=== PATIENT | male | born 1980 | race Caucasian/White ===

== ENCOUNTER 2017-01-17 22:22 | Inpatient (IN) | payer OTHER ==
[~2017-01-17] VITALS: Ht 180.3 cm; Wt 92.1 kg
--- NOTE | 2017-01-17 22:32 | ED GI/GU/ABDOMINAL COMPLAINT ---
History of Present Illness General Chief Complaint: Abdominal Pain/Flank Pain Stated Complaint: ABD PAIN/ CHEST TIGHTNESS Source: patient Exam Limitations: no limitations Vital Signs & Intake/Output Vital Signs & Intake/Output Vital Signs Date Time Temp Pulse Resp B/P Pulse O2 O2 Flow FiO2 Ox Delivery Rate 01/18 0002 96.5 97 18 124/79 93 Room Air 01/17 2306 99 Room Air 01/17 2227 98.3 110 28 154/96 97 ED Intake and Output 01/18 0000 01/17 1200 Intake Total 1000 Output Total Balance 1000 Intake, IV 1000 Patient 203 lb Weight Allergies Coded Allergies: NO KNOWN ALLERGIES (01/10/17) Reconcile Medications Butalb/Acetaminophen/Caffeine (Fioricet 50-300-40 MG Capsule) 1 EACH CAPSULE 1 TAB PO Q4-6 PRN PAIN Metoclopramide HCl (Reglan) 10 MG TABLET 1 TAB PO Q8 PRN nausea/headache Multivitamin (Multi-Day Vitamins) 1 EACH TABLET 1 TAB PO DAILY SUPPLEMENT ( Reported) Pantoprazole Sodium 40 MG TABLET.DR 1 TAB PO DAILY GI (Reported) Triage Note: per pt had hernia surgery this am by dr. petra garcia abd pain and pain into chest, used co2 to do surgery, pt reports also not passing any gas. Triage Nurses Notes Reviewed? yes Onset: Gradual Duration: hour(s): Timing: recent history Quality/Severity: burning, cramping Location: generalized abdomen Radiation: no radiation Activities at Onset: postop Prior Abdominal Problems: patient had hernia and Diane fundoplication surgery earlier today. Modifying Factors: Worsens With: vomiting. Associated Symptoms: abdominal pain, nausea/vomiting HPI: 36-year-old gentleman status post Diane fundoplication and abdominal wall hernia repair, was discharged at approximately 5 PM this afternoon, presents with midepigastric abdominal pain vomiting, decreased oral intake, abdominal distention. He states, "I can't keep anything down." He notes no fever chills shortness of breath wheezing phlegm. He is otherwise well. Past History Travel History Traveled to [place] past 21 day No Medical History Any Pertinent Medical History? 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 No Review of Systems Review of Systems Constitutional: Reports: no symptoms. EENTM: Reports: no symptoms. Respiratory: Reports: no symptoms. Cardiovascular: Reports: no symptoms. GI: Reports: no symptoms. Genitourinary: Reports: no symptoms. Musculoskeletal: Reports: no symptoms. Skin: Reports: no symptoms. Neurological/Psychological: Reports: no symptoms. Hematologic/Endocrine: Reports: no symptoms. Immunologic/Allergic: Reports: no symptoms. All Other Systems: Reviewed and Negative Physical Exam Physical Exam General Appearance: well developed/nourished, mild distress, moderate distress Head: atraumatic, normal appearance Eyes: Bilateral: normal appearance. Ears, Nose, Throat, Mouth: hearing grossly normal Neck: normal inspection, supple, full range of motion, normal alignment, abnormal alignment Respiratory: normal breath sounds, chest non-tender, no respiratory distress, quiet respiration, lungs clear Cardiovascular: regular rate/rhythm Gastrointestinal: normal bowel sounds, diminished bowel sounds, moderately distended abdomen, several surgical suture sites are clean/dry/intact. Back: normal inspection, normal range of motion Extremities: normal range of motion, evidence of injury Neurologic/Psych: no motor/sensory deficits, awake, alert, oriented x 3 Skin: intact, normal color, warm/dry Core Measures ACS in differential dx? No Severe Sepsis Present: No Septic Shock Present: No Progress Differential Diagnosis: post-op pain, ileus, sbo vs other. Plan of Care: Orders Procedure Date/time Status Admit to inpatient 01/18 0050 Active CULTURE,URINE 01/17 2342 Active URINALYSIS 01/17 234 Complete LIPASE 01/17 223 Complete HEPATIC FUNCTION PANEL 01/17 2233 Complete CBC WITHOUT DIFFERENTIAL 01/17 2233 Complete BASIC METABOLIC PANEL 01/17 2233 Complete AMYLASE 01/17 2233 Complete EKG 01/17 2233 Active Current Medications Sig/Karin Start time Last Medication Dose Stop Time Status Admin Sodium Chloride 1,000 ML BOLUS ONE 01/18 0100 AC (Normal Saline 0.9%) 01/18 0159 Laboratory Tests 01/17/17 2353: Urine Color STRAW, Urine Clarity CLEAR, Urine pH 6.5, Ur Specific [place] 1.010, Urine Protein NEG, Urine Ketones NEG, Urine Nitrite NEG, Urine Bilirubin NEG, Urine Urobilinogen 0.2, Ur Leukocyte Esterase NEG, Ur Microscopic SEDIMENT EXAMINED, Urine RBC RARE, Ur Epithelial Cells RARE, Urine Hemoglobin TRACE- INTACT H, Urine Glucose 250 H 01/17/17 2304: Anion Gap 13, Estimated GFR > 60, BUN/Creatinine Ratio 13.0, Glucose 186 H, Calcium 9.3, Total Bilirubin 1.0, Direct Bilirubin 0.4, AST 103 H, ALT 133 H, Alkaline Phosphatase 96, Total Protein 6.5, Albumin 4.0, Amylase 33, Lipase 128, CBC w Diff NO MAN DIFF REQ, RBC 4.99, MCV 84.5, MCH 28.2, RDW 15.0 H, MPV 9.4, Gran % 93.6 H, Lymphocytes % 5.5 L, Monocytes % 0.9 L, Eosinophils % 0, Basophils % 0 L, Absolute Granulocytes 10.4 H, Absolute Lymphocytes 0.6 L, Absolute Monocytes 0.1 L, Absolute Eosinophils 0, Absolute Basophils 0, PUBS MCHC 33.4 Microbiology 01/17 2353 URINE ROUT: Urine Culture - RECD Diagnostic Imaging: Viewed by Me: CT Scan. Discussed w/RAD: CT Scan. Radiology Impression: abd/pelvic ct - free air in mediastinum c/w diane fundoplication, food in distal esophagus... full report below. Initial ED EKG: normal axis, normal intervals, normal p-waves, normal QRS complex, normal sinus rhythm Comments: PATIENT: HA NAVARRO PRESENT AGE: 36 PATIENT ACCOUNT NO: [id number] : 81 LOCATION: [facility] ORDERING PHYSICIAN: BUSTER HAIRSTON MD SERVICE DATE: 01/17/17 EXAM TYPE: CAT - CT ABD & PELVIS W/O IV CONTRAS EXAMINATION: CT ABDOMEN AND PELVIS WITHOUT CONTRAST CLINICAL INFORMATION: Abdominal pain status post hernia surgery today. COMPARISON: Abdominal CT October 12, 2014. TECHNIQUE: Multidetector volumetric imaging was performed from the superior aspect of the liver through the pubic symphysis. Sagittal and coronal reformatted images were obtained on the technologist's workstation. FINDINGS: There is streaky bibasilar atelectasis. Limited evaluation of the unenhanced liver, spleen, adrenal glands, and pancreas reveals no definite abnormality. Gallbladder is surgically absent. The kidneys are symmetric in size without evidence of hydronephrosis or nephrolithiasis. Patient is status post gastric Diane fundoplication. There is soft tissue gas within the mediastinum surrounding the heart. The large and small bowel are normal in caliber without evidence of mechanical obstruction. No focal inflammatory changes adjacent to the large or the small bowel. The appendix is not visualized. There is no free air and there is no intra-abdominal free fluid. No mesenteric or retroperitoneal adenopathy. Small amount of nondependent gas within the bladder is presumably related to recent Lerma catheter insertion. No pelvic adenopathy. No free fluid within the pelvis. There are no acute osseous abnormalities. There is a chronic superimposed plate Schmorl's node at T12. There is a small fat-containing ventral abdominal wall hernia. IMPRESSION: - Patient is status post gastric Diane fundoplication. There is soft tissue gas within the mediastinum surrounding the heart. There are no inflammatory changes within the mediastinum. The distal esophagus is slightly distended with ingested material and there is gaseous distention of the stomach. There is no intra-abdominal free air and there are no acute findings within the abdomen or pelvis. - There is streaky bibasilar atelectasis. - Cholecystectomy. - Small fat-containing ventral abdominal wall hernia. DICTATED BY: JOSIAH TAN MD DATE/TIME DICTATED:01/17/172317 SUPERVISOR CURING ROOM:[facility] DATE/TIME TRANSCRIBED:01/17/172317 CONFIDENTIAL, DO NOT COPY WITHOUT APPROPRIATE AUTHORIZATION. <Electronically signed in Other Vendor System> SIGNED BY: JOSIAH TAN MD 01/17/17 2189 Departure Departure Disposition: STILL A PATIENT Condition: Stable Clinical Impression Primary Impression: Postoperative pain Referrals: IFTIKHAR AUGUSTIN (PCP/Family) Departure Forms: Customer Survey General Discharge Information Admission Note Spoke With: PETRA TAVARES,DONAL Bowles Documentation of Exam: Documentation of any treatments & extenuating circumstances including Concerns Regarding Discharge (functional status, medication knowledge or non-compliance, living conditions, etc.) that warrant an admission rather than observation: pt with post-op pain, poor po intake. pt merits iv fluids, iv pain meds, recuperation.
[2017-01-17 23:18] LABS: ABSOLUTE BASOPHIL COUNT 0 /CUMM (0.0-0.2); ABSOLUTE EOSINOPHIL COUNT 0 /CUMM (0.0-0.7); ABSOLUTE GRANULOCYTE CT 10.4 /CUMM (1.4-6.5); ABSOLUTE LYMPH COUNT 0.6 /CUMM (1.2-3.4); ABSOLUTE MONOCYTE COUNT 0.1 /CUMM (0.10-0.60); BASOPHIL % 0 % (0.0-2.0); EOSINOPHIL % 0 % (0-5); HEMATOCRIT 42.2 % (42-52); MEAN CORPUSCULAR HGB 28.2 PG (27.0-31.0); MEAN CORPUSCULAR HGB CONC 33.4 G/DL (33.0-37.0); MEAN CORPUSCULAR VOLUME 84.5 FL (80.0-94.0); MEAN PLATELET VOLUME 9.4 FL (7.4-10.4); PLATELET COUNT 165 /CUMM (130-400); RED BLOOD CELL CT 4.99 /CUMM (4.70-6.10); WHITE BLOOD CELL COUNT 11.1 /CUMM (4.8-10.8)
[2017-01-17 23:21] LABS: GRANULOCYTE % 93.6 % (42.2-75.2)
--- NOTE | 2017-01-17 23:35 | CT SCAN REPORT ---
EXAMINATION: CT ABDOMEN AND PELVIS WITHOUT CONTRAST CLINICAL INFORMATION: Abdominal pain status post hernia surgery today. COMPARISON: Abdominal CT October 12, 2014. TECHNIQUE: Multidetector volumetric imaging was performed from the superior aspect of the liver through the pubic symphysis. Sagittal and coronal reformatted images were obtained on the technologist's workstation. FINDINGS: There is streaky bibasilar atelectasis. Limited evaluation of the unenhanced liver, spleen, adrenal glands, and pancreas reveals no definite abnormality. Gallbladder is surgically absent. The kidneys are symmetric in size without evidence of hydronephrosis or nephrolithiasis. Patient is status post gastric Diane fundoplication. There is soft tissue gas within the mediastinum surrounding the heart. The large and small bowel are normal in caliber without evidence of mechanical obstruction. No focal inflammatory changes adjacent to the large or the small bowel. The appendix is not visualized. There is no free air and there is no intra-abdominal free fluid. No mesenteric or retroperitoneal adenopathy. Small amount of nondependent gas within the bladder is presumably related to recent Lerma catheter insertion. No pelvic adenopathy. No free fluid within the pelvis. There are no acute osseous abnormalities. There is a chronic superimposed plate Schmorl's node at T12. There is a small fat-containing ventral abdominal wall hernia. IMPRESSION: - Patient is status post gastric Diane fundoplication. There is soft tissue gas within the mediastinum surrounding the heart. There are no inflammatory changes within the mediastinum. The distal esophagus is slightly distended with ingested material and there is gaseous distention of the stomach. There is no intra-abdominal free air and there are no acute findings within the abdomen or pelvis. - There is streaky bibasilar atelectasis. - Cholecystectomy. - Small fat-containing ventral abdominal wall hernia.
--- NOTE | 2017-01-18 01:27 | Admission Core Measures ---
Admission Lab Results I reviewed the following labs: Laboratory Tests 01/17 01/17 2353 2304 Chemistry Sodium (137 - 145 mmol/L) 138 Potassium (3.5 - 5.1 mmol/L) 4.1 Chloride (98 - 107 mmol/L) 102 Carbon Dioxide (22 - 30 mmol/L) 22 Anion Gap (5 - 16) 13 BUN (9 - 20 mg/dL) 13 Creatinine (0.7 - 1.2 mg/dL) 1.0 Estimated GFR (>60 ml/min) > 60 BUN/Creatinine Ratio (7 - 25 %) 13.0 Glucose (65 - 99 mg/dL) 186 H Calcium (8.4 - 10.2 mg/dL) 9.3 Total Bilirubin (0.2 - 1.3 mg/dL) 1.0 Direct Bilirubin (< 0.4 mg/dL) 0.4 AST (17 - 59 U/L) 103 H ALT (21 - 72 U/L) 133 H Alkaline Phosphatase (< 127 U/L) 96 Total Protein (6.3 - 8.2 g/dL) 6.5 Albumin (3.5 - 5.0 g/dL) 4.0 Amylase (30 - 110 U/L) 33 Lipase (23 - 300 U/L) 128 Hematology CBC w Diff NO MAN DIFF REQ WBC (4.8 - 10.8 /CUMM) 11.1 H RBC (4.70 - 6.10 /CUMM) 4.99 Hgb (14.0 - 18.0 G/DL) 14.1 Hct (42 - 52 %) 42.2 MCV (80.0 - 94.0 FL) 84.5 MCH (27.0 - 31.0 PG) 28.2 RDW (11.5 - 14.5 %) 15.0 H Plt Count (130 - 400 /CUMM) 165 MPV (7.4 - 10.4 FL) 9.4 Gran % (42.2 - 75.2 %) 93.6 H Lymphocytes % (20.5 - 51.1 %) 5.5 L Monocytes % (1.7 - 9.3 %) 0.9 L Eosinophils % (0 - 5 %) 0 Basophils % (0.0 - 2.0 %) 0 L Absolute Granulocytes (1.4 - 6.5 /CUMM) 10.4 H Absolute Lymphocytes (1.2 - 3.4 /CUMM) 0.6 L Absolute Monocytes (0.10 - 0.60 /CUMM) 0.1 L Absolute Eosinophils (0.0 - 0.7 /CUMM) 0 Absolute Basophils (0.0 - 0.2 /CUMM) 0 PUBS MCHC (33.0 - 37.0 G/DL) 33.4 Urines Urine Color (YEL,AMB,STR) STRAW Urine Clarity (CLEAR) CLEAR Urine pH (5.0 - 8.0) 6.5 Ur Specific [place] (1.001 - 1.035) 1.010 Urine Protein (NEG,<30 MG/DL) NEG Urine Ketones (NEG) NEG Urine Nitrite (NEG) NEG Urine Bilirubin (NEG) NEG Urine Urobilinogen (0.1 - 1.0 EU/dl) 0.2 Ur Leukocyte Esterase (NEG) NEG Ur Microscopic SEDIMENT EXAMINED Urine RBC (0 - 5 /HPF) RARE Ur Epithelial Cells (NONE,FEW) RARE Urine Hemoglobin (NEG) TRACE-INTACT H Urine Glucose (N MG/DL) 250 H Admission Meds I reviewed the following Meds: Current Medications Sig/Karin Start time Last Medication Dose Stop Time Status Admin Sodium Chloride 1,000 ML BOLUS ONE 01/18 010 AC (Normal Saline 0.9%) 01/18 0159 Acute Coronary Syndrome Inclusion Criteria ACS Diagnosis No Inpatient Core Measures LDL Reminder: If No, please order W/I first 24hr of stay Congestive Heart Failure Inclusion Criteria CHF Diagnosis No Cerebrovascular accident Inclusion Criteria CVA/TIA Diagnosis No Inpatient Core Measures Bedside Swallow Eval Reminder: If BSE failed, place ST order Antithrombotic Reminder: Order Antithrombotic Medication by end of day 2 Antithrombotic Reminder: Document Reason Antithrombotic Not ordered by end of day 2 AFIB/Flutter Reminder: If Present, add to problem list AFIB/Flutter Reminder: Order Anticoag Medication for pts with AFIB/Flutter Atherosclerosis Reminder: If Present, add to problem list LDL Reminder: If No, please order W/I first 24hr of stay PT Order Reminder: If No, please order Venous thromboembolism Inpatient Core Measures VTE Risk Factors: Surgery VTE Prophylaxis Ordered Inpt Mech & Pharm No Mech VTE prophylaxis d/t No contraindications No VTE Pharm Prophylaxis d/t No contraindications Inclusion Criteria - Per Current guidelines, there needs to be overlap - treatment for the first 5 days of Warfarin therapy. - Parenteral Anticoagulation (IV or SC) needs to be - given along with Warfarin therapy. VTE Diagnosis No VTE Type NONE VTE Confirmed by (Test) NONE Problem List As ranked by this Provider includes Assessment & Plan 1. Postoperative pain 2. Status post laparoscopic Diane fundoplication HOME MEDS Home Med List Butalb/Acetaminophen/Caffeine (Fioricet 50-300-40 MG Capsule) 1 EACH CAPSULE 1 TAB PO Q4-6 PRN PAIN Metoclopramide HCl (Reglan) 10 MG TABLET 1 TAB PO Q8 PRN nausea/headache Multivitamin (Multi-Day Vitamins) 1 EACH TABLET 1 TAB PO DAILY SUPPLEMENT ( Reported) Pantoprazole Sodium 40 MG TABLET.DR 1 TAB PO DAILY GI (Reported)
--- NOTE | 2017-01-18 01:41 | History & Physical ---
General Information and HPI MD Statement: I have seen and personally examined HA SARKAR and documented this H&P. The patient is a 36 year old M who presented with a patient stated chief complaint of [abdominal pain]. Source of Information: patient, old records Exam Limitations: no limitations History of Present Illness: Mr. Sarkar is a 36-year-old male who is status post laparoscopic Diane fundoplication earlier today. He was discharged without complications this afternoon however when he arrived at home he began experiencing increased abdominal pain chest pain and vomiting after eating a partial doughnut. After the initial episode of vomiting he states that he continued to vomit and then began dry heaving. He was concerned so presented himself to the emergency room for evaluation. He denies substernal chest pain, shortness of breath, he is urinating without difficulty, and is passing gas. He denies any fever or chills. He has no other complaints. Allergies/Medications Allergies: Coded Allergies: NO KNOWN ALLERGIES (01/10/17) Home Med list Butalb/Acetaminophen/Caffeine (Fioricet 50-300-40 MG Capsule) 1 EACH CAPSULE 1 TAB PO Q4-6 PRN PAIN Metoclopramide HCl (Reglan) 10 MG TABLET 1 TAB PO Q8 PRN nausea/headache Multivitamin (Multi-Day Vitamins) 1 EACH TABLET 1 TAB PO DAILY SUPPLEMENT ( Reported) Pantoprazole Sodium 40 MG TABLET. 1 TAB PO DAILY GI (Reported) Past History Travel History Traveled to [place] past 21 day No Medical History Neurological: NONE EENT: NONE Cardiovascular: NONE Respiratory: NONE Gastrointestinal: GERD Hepatic: NONE Renal: NONE Musculoskeletal: NONE Psychiatric: NONE Endocrine: NONE Blood Disorders: NONE Cancer(s): NONE [employer]ER/Reproductive: NONE Surgical History Surgical History: NONE Past Family/Social History Psychosocial History Services at Home: None Review of Systems Review of Systems Constitutional: Denies: no symptoms, see HPI, chills, diaphoresis, fever, malaise, weakness, unexplained weight loss. Exam & Diagnostic Data Last 24 Hrs of Vital Signs/I&O Vital Signs Date Time Temp Pulse Resp B/P Pulse O2 O2 Flow FiO2 Ox Delivery Rate 01/18 0002 96.5 97 18 124/79 93 Room Air 01/17 2306 99 Room Air 01/17 2227 98.3 110 28 154/96 97 Intake & Output 01/18 0800 01/18 0000 03/01 1600 Intake Total 1000 Output Total Balance 1000 Intake, IV 1000 Patient 203 lb Weight Physical Exam General Appearance Alert, Oriented X3 HEENT PERRLA Cardiovascular Regular Rate, Normal S1, Normal S2 Lungs Clear to Auscultation Abdomen abdomen is softly distended, tenderness to palpation in the left upper quadrant, expected after Diane fundoplication, there is no evidence of peritonitis, bowel sounds are hypoactive Neurological Normal Speech, Strength at 5/5 X4 Ext Extremities No Edema Vascular Normal Pulses Last 24 Hrs of Labs/Eduardo: Laboratory Tests 01/17/172352: Urine Color STRAW, Urine Clarity CLEAR, Urine pH 6.5, Ur Specific Bryson 1.010, Urine Protein NEG, Urine Ketones NEG, Urine Nitrite NEG, Urine Bilirubin NEG, Urine Urobilinogen 0.2, Ur Leukocyte Esterase NEG, Ur Microscopic SEDIMENT EXAMINED, Urine RBC RARE, Ur Epithelial Cells RARE, Urine Hemoglobin TRACE- INTACT H, Urine Glucose 250 H 01/17/17 2304: Anion Gap 13, Estimated GFR > 60, BUN/Creatinine Ratio 13.0, Glucose 186 H, Calcium 9.3, Total Bilirubin 1.0, Direct Bilirubin 0.4, AST 103 H, ALT 133 H, Alkaline Phosphatase 96, Total Protein 6.5, Albumin 4.0, Amylase 33, Lipase 128, CBC w Diff NO MAN DIFF REQ, RBC 4.99, MCV 84.5, MCH 28.2, RDW 15.0 H, MPV 9.4, Gran % 93.6 H, Lymphocytes % 5.5 L, Monocytes % 0.9 L, Eosinophils % 0, Basophils % 0 L, Absolute Granulocytes 10.4 H, Absolute Lymphocytes 0.6 L, Absolute Monocytes 0.1 L, Absolute Eosinophils 0, Absolute Basophils 0, PUBS MCHC 33.4 Microbiology 01/17 2353 URINE ROUT: Urine Culture - RECD Diagnostic Data Other Results SERVICE DATE: 01/17/17 EXAM TYPE: CAT - CT ABD & PELVIS W/O IV CONTRAS EXAMINATION: CT ABDOMEN AND PELVIS WITHOUT CONTRAST CLINICAL INFORMATION: Abdominal pain status post hernia surgery today. COMPARISON: Abdominal CT October 12, 2014. TECHNIQUE: Multidetector volumetric imaging was performed from the superior aspect of the liver through the pubic symphysis. Sagittal and coronal reformatted images were obtained on the technologist's workstation. FINDINGS: There is streaky bibasilar atelectasis. Limited evaluation of the unenhanced liver, spleen, adrenal glands, and pancreas reveals no definite abnormality. Gallbladder is surgically absent. The kidneys are symmetric in size without evidence of hydronephrosis or nephrolithiasis. Patient is status post gastric Diane fundoplication. There is soft tissue gas within the mediastinum surrounding the heart. The large and small bowel are normal in caliber without evidence of mechanical obstruction. No focal inflammatory changes adjacent to the large or the small bowel. The appendix is not visualized. There is no free air and there is no intra-abdominal free fluid. No mesenteric or retroperitoneal adenopathy. Small amount of nondependent gas within the bladder is presumably related to recent Lerma catheter insertion. No pelvic adenopathy. No free fluid within the pelvis. There are no acute osseous abnormalities. There is a chronic superimposed plate Schmorl's node at T12. There is a small fat-containing ventral abdominal wall hernia. IMPRESSION: - Patient is status post gastric Diane fundoplication. There is soft tissue gas within the mediastinum surrounding the heart. There are no inflammatory changes within the mediastinum. The distal esophagus is slightly distended with ingested material and there is gaseous distention of the stomach. There is no intra-abdominal free air and there are no acute findings within the abdomen or pelvis. - There is streaky bibasilar atelectasis. - Cholecystectomy. - Small fat-containing ventral abdominal wall hernia. DICTATED BY: JOSIAH TAN MD DATE/TIME DICTATED:01/17/172317 IMPORT/EXPORT AGENT:JHON DATE/TIME TRANSCRIBED:01/17/172317 Assessment/Plan Assessment: Mr. Sarkar is a 36-year-old male who is status post laparoscopic Diane fundoplication earlier today. He began experiencing nausea and vomiting after eating a donut. CAT scan evaluation emergency room this evening demonstrates no acute changes warranting immediate intervention. However there is residual food in the distal esophagus consistent with eating a donut from earlier today. Anus exam today in the emergency room does not show any strenuous significant changes warranting immediate intervention. This was relayed to Dr. Hyatt who was aware of the patient and agrees that the patient should be admitted for observation overnight. Plan Admit to the surgical service under Dr. Hyatt's care IV hydration Titrate pain medication Serial abdominal exams Will resume Diane fundoplication 1 diet [address] Hyatt is aware and will evaluate the patient in the a.m. As Ranked By This Provider Problem List: 1. Postoperative pain 2. Status post laparoscopic Diane fundoplication Core Measures/Miscellaneous Acute Coronary Syndrome ACS Diagnosis: No Cerebrovascular Accident CVA/TIA Diagnosis: No Congestive Heart Failure CHF Diagnosis: No Venous Thromboembolism VTE Risk Factors: Surgery VTE Prophylaxis Ordered Inpt: Mech & Pharm No Mech VTE prophylaxis d/t: No contraindications No VTE Pharm Prophylaxis d/t: No contraindications VTE Diagnosis: No VTE Type: NONE VTE Confirmed by (Test): NONE Severe Sepsis Severe Sepsis Present: No Septic Shock Septic Shock Present: No Miscellaneous Documentation Attending Case Discussed With: Dr Hyatt Primary Care Physician: IFTIKHAR AUGUSTIN Patient sees these Specialists none Level of Patient Care: General Medicine
[2017-01-18 03:43] VITALS: BP 132/98
--- NOTE | 2017-01-18 08:27 | PN- General Surgery ---
Subjective Subjective: Patient reporting improvement in nausea and states that he wants to sign out AMA. He denies chest pain, shortness of breath and difficulty breathing. Objective Vital Signs and I&Os Vital Signs Date Time Temp Pulse Resp B/P Pulse O2 O2 Flow FiO2 Ox Delivery Rate 01/18 0343 93 Room Air 01/18 0343 98.9 101 20 132/98 93 Room Air 01/18 0253 96.6 103 20 132/80 92 Room Air 01/18 0002 96.5 97 18 124/79 93 Room Air 01/17 2306 99 Room Air 01/17 2227 98.3 110 28 154/96 97 Intake & Output 01/18 1600 01/18 0800 01/18 0000 01/17 1600 01/17 0800 01/17 0000 Intake Total 400 1000 Output Total 400 Balance 0 1000 Intake, IV 400 1000 Output, Urine 400 Patient 203 lb 203 lb Weight Physical Exam: General: Alert and oriented x3, agitated Abdomen: Non-distended Assessment/Plan Assessment/Plan This is a 36 year old male, POD 1, s/p javid fundoplication, laparoscopic. Was discharged post operatively on POD 0, but returned to ER last evening with intractable nausea and vomitting that began shortly after he ate a donut. Since being admitted to hospital he has been npo with a near complete resolution of his symptoms, he complains of incisional pain now but no nausea or vomitting. He is interested in signing out AMA at this time as he does not feel that he is being helped by his hospital stay. I encouraged him to stay and assess his ability to tolerate the stage 1 fundoplication diet. -Advance diet to fundoplication stage one at this time -Will discuss with Dr. Hyatt Core Measures/Miscellaneous Venous Thromboembolism VTE Risk Factors: Surgery VTE Contraindications: No Contraindications VTE Prophylaxis Ordered Inpt Mech & Pharm VTE Diagnosis: No VTE Type: NONE VTE Confirmed by (Test): NONE Beta Anibal Is Beta Anibal a Home Med? No Antibiotics Is Patient on Antibiotics? No
--- NOTE | 2017-01-19 10:02 | Surg Short-stay <48hrs Dis Sum ---
Visit Information Visit Dates Admission Date: 01/18/17 Discharge Date: 01/18/17 Surgical Short Stay DC Summary Admission Diagnosis: dysphagia Final Diagnosis: same Procedure(s): none Summary/Significant Findings: patient admitted from the ER with acute dysphagia after eating a donut. He was discharged from same day surgery after uneventful laparoscopic hiatal hernia repair with Diane fundoplication three hours prior. Preoperative instructions regarding the avoidance of such foods in the early postoperative period were given in my office upon initial consultation, in the preoperative holding department by me and in the immediate postoperative period by dietitian. He was admitted for hydration. He left AMA in the morning prior to attempt at liquid diet. Condition at Discharge: unknown to me Discharge Disposition: left against medical adv Discharge instructions provided to patient/family: No Post discharge follow-up plan: 2 weeks as previously arranged
== END 2017-01-18 09:39 | disposition left against medical advice (07) | DRG 861 ==
LOC: ENRESERVTM → ENRESERVDT → ERH 22:22 → ERHI 01-18 00:50 → 2NA 01-18 03:21
PROVIDERS: Pediatrics; ADMIT Surgery
DX: G89.18 Other acute postprocedural pain (principal); F17.210 Nicotine dependence, cigarettes, uncomplicated; R11.0 Nausea
CPT/HCPCS: 2NAP; 74176; 81001; 87086; 93005; 93010; 96374; 96375; J0131; J0690; J1100; J1644; J2250; J2405; J7042

== ENCOUNTER → 2017-01-17 | Day surgery (SDC) | payer OTHER ==
[~2017-01-17] VITALS: Ht 180.3 cm; Wt 92.1 kg
[~2017-01-17] MED LIST: AUGMENTIN 875 M1 TAB PO; BENTYL20 MG PO; FIORICET 50-301 EACH PO; MOTRIN 600 MG600 MG PO; MULTI-DAY VITA1 EACH PO; PANTOPRAZOLE SO40 M1 PO; PEPCID40 MG PO; PERCOCET 325 MG1 TAB PO; PERIDEX 0.12% OR1 ML PO; PREDNISONE 20MG20 MG PO; PREDNISONE10 M2 PO; PRILOSEC 20MG C20 MG PO; REGLAN10 M1 PO; REGLAN10 MG PO; ULTRAM(MONOGRAP50 MG PO
--- NOTE | 2017-01-17 12:00 | Operative Report ---
Operative/Inv Procedure Report Surgery Date: 01/17/17 Name of Procedure: Laparoscopic hiatal hernia repair with Diane fundoplication Pre-Operative Diagnosis: GERD Esophagitis Post-Operative Diagnosis: Same same Estimated Blood Loss: scant Surgeon/Threat Analyst: BLADIMIR TAVARES,DONAL Bowles/Analia LINDSAY Anesthesia: general endotracheal tube Implants: None Operative Indication: 36-year-old male presents with medically refractory GERD and esophagitis for surgical correction Operative/Procedure Note Note: After consent is brought to the operating room and laid supine. Gen. anesthesia was obtained and was then placed in lithotomy position. His abdomen was prepped and draped. The skin above the umbilicus was after local anesthesia transverse incision made sharply. We dissected down to the fascia and grasped with [place]' s. Fasciotomies crated longitudinally and stay sutures placed. A blunt Garcia port was placed. No peritoneum was achieved. In the right upper quadrant a 5 mm trocar was placed then extracted and replaced with the Cindi retractor. The liver edge was elevated and retractor secured to the bed. 3, 5 mm ports were then placed in the epigastrium and left upper quadrant after local anesthesia was instilled and under direct vision the camera. He's placed in reverse Trendelenburg. There was a diminutive hiatal hernia. The gastro hepatic ligament was then taken with the Sonicision device. The right crura was identified and the peritoneum medial to it taken down with the Sonicision device. We carried our dissection anteriorly over to the left crura. We then went back and forth with our dissection until we circumferentially dissected the esophagus. An umbilical tape was then placed posterior and tied to itself to serve as a retraction device. We circumferentially mobilized the lower esophagus in the mediastinum to obtain 3 cm of intra-abdominal esophagus. Next the short gastrics were taken down with Sonicision device to fully mobilize the fundus. The crural defect was then closed with interrupted 0 permanent braided sutures. Next the fundoplication was fashioned. The fundus placed posterior to the esophagus and a shoeshine maneuver performed. The fundus was then sutured to itself anteriorly 2-0 Vicryl. This was done it in a floppy fashion. The second suture was placed inferiorly and incorporating the anterior portion of the esophagus, taking care to avoid injury to the anterior vagus. The result was a short floppy Diane without undue tension. I elected not to place crural mesh due to the small size of a hiatal hernia. Hemostasis was adequate. Umbilical tape was extracted and passed off the field. Liver edge was then allowed to fall back down and ports removed. The fascia at the supraumbilical position was closed with 0 Vicryl suture. Skin incisions closed with 4-0 Vicryl. Steri-Strips and sterile dressing applied. Sponge and needle counts are correct CC: IFTIKHAR AUGUSTIN
== END ==
LOC: STS 01:14
DX: K44.9 Diaphragmatic hernia without obstruction or gangrene (principal); K21.0 Gastro-esophageal reflux disease with esophagitis; K22.70 Barrett's esophagus without dysplasia; F17.200 Nicotine dependence, unspecified, uncomplicated; R10.11 Right upper quadrant pain
CPT/HCPCS: 87086; J0131; J0690; J1100; J2250; J2405